=== PATIENT | female | born 1950 | race Hispanic/Latino ===

== ENCOUNTER 2022-06-29 17:38 | Emergency (ER) | payer SELFPAY ==
[2022-06-29 19:11] LABS: Urine Blood Negative (Negative); Urine Glucose Negative (Negative); Urine Protein Negative (Negative); Urine Specific Gravity <=1.005 (1.005-1.030); Urine pH 5.5 (5.0-7.0)
--- NOTE | 2022-06-29 19:51 | ER ---
Nurse's Notes [facility] Name: Mercedez Chairez Age: 72 yrs Sex: Female : 1950 Arrival Date: 06/29/2022 Time: 17:40 Bed Treatment Private MD: Diagnosis: UTI/ Urinary tract infection, site not specified Presentation: 06/29 17:50 Chief complaint: Patient states: Pt reports intermittent fever x3 days, vaginal itching kb3 x7 days. Denies urinary frequency, hesitancy, pain. Coronavirus screen: Vaccine status: Patient reports receiving the 2nd dose of the covid vaccine. Client denies travel out of the [place] in the last 14 days. Ebola Screen: Patient negative for fever greater than or equal to 101.5 degrees Fahrenheit, and additional compatible Ebola Virus Disease symptoms Patient denies exposure to infectious person. Patient denies travel to an Ebola-affected area in the 21 days before illness onset. Initial Sepsis Screen: Does the patient meet any 2 criteria? No. Patient's initial sepsis screen is negative. Does the patient have a suspected source of infection? No. Patient's initial sepsis screen is negative. Risk Assessment: Do you want to hurt yourself or someone else? Patient reports no desire to harm self or others. Onset of symptoms was June 22, 2022. 17:50 Method Of Arrival: Ambulatory kb3 17:50 Acuity: [id number] 4 kb3 Triage Assessment: 17:54 General: Appears in no apparent distress. Behavior is calm, cooperative. Pain: Denies kb3 pain. Historical: - Allergies: 17:52 No Known Allergies; kb3 - PMHx: 17:54 Breast CA; Cerebrovascular accident; Lymphadema; Hypercholesterolemia; Hypertensive kb3 disorder; - PSHx: 17:54 Mastectomy; kb3 - Immunization history:: Adult Immunizations up to date, Client reports receiving the 2nd dose of the Covid vaccine, Last tetanus immunization: up to date. - Social history:: Smoking status: Patient denies any tobacco usage or history of. Screenin:41 Abuse screen: Denies threats or abuse. Denies injuries from another. Nutritional hb screening: No deficits noted. Tuberculosis screening: No symptoms or risk factors identified. Fall Risk None identified. Assessment: 19:15 General: Appears in no apparent distress. Behavior is calm, cooperative. Neuro: Level hb of Consciousness is awake, alert, obeys commands, Oriented to person, place, time, situation. Cardiovascular: Patient's skin is warm and dry. Respiratory: Respiratory effort is even, unlabored, Respiratory pattern is regular, symmetrical. 20:02 Reassessment: Patient appears in no apparent distress at this time. Patient and/or hb family updated on plan of care and expected duration. Pain level reassessed. Patient is alert, oriented x 3, equal unlabored respirations, skin warm/dry/pink. Vital Signs: 17:50 BP 145 / 66; Pulse 81; Resp 20; Temp 99.1; Pulse Ox 95% ; Weight 89.81 kg; Height 5 ft. kb3 1 in. (154.94 cm); Pain 0/10; 20:11 BP 142 / 72; Pulse 84; Resp 18; Pulse Ox 96% ; em6 17:50 Body Mass Index 37.41 (89.81 kg, 154.94 cm) kb3 ED Course: 17:40 Patient arrived in ED. as 17:52 Triage completed. kb3 17:54 Arm band placed on right wrist. kb3 17:58 David Caldera MD is Attending Physician. kdr 19:15 Monisha Carcamo, RN is Primary Nurse. hb 19:41 Patient has correct armband on for positive identification. hb 20:12 No provider procedures requiring assistance completed. Patient did not have IV access em6 during this emergency room visit. Administered Medications: 19:58 Drug: DiFLUcan (fluconazole) 150 mg Route: PO; em6 20:12 Follow up: Response: No adverse reaction em6 19:58 Drug: Bactrim (trimethoprim-sulfamethoxazole) (160 mg-800 mg (DS) 1 tablet Route: PO; em6 20:12 Follow up: Response: No adverse reaction em6 Medication: 19:41 VIS not applicable for this client. hb Outcome: 19:50 Discharge ordered by . kdr 20:12 Discharged to home ambulatory. em6 20:12 Condition: stable 20:12 Discharge instructions given to patient, Instructed on discharge instructions, follow up and referral plans. medication usage, Demonstrated understanding of instructions, follow-up care, medications, Prescriptions given X 1. 20:12 Patient left the ED. em6 Signatures: Rittger, David, Gisel Gilbert MD, Heather, RN RN hb Vianey Padron, RN RN em6 Eveline Rosas, RN RN kb3
--- NOTE | 2022-06-29 19:51 | EDPHYS ---
Physician Documentation [facility] Name: Mercedez Chairez Age: 72 yrs Sex: Female : 1950 Arrival Date: 06/29/2022 Time: 17:40 Bed Treatment Private MD: MICHELLE Physician David Caldera HPI: 06/29 19:50 This 72 yrs old Female presents to ER via Ambulatory with complaints of kdr infection. 19:50 Patient complains of urinary tract fraction symptoms including itching in her perineum. kdr Is been going on intermittently for about a month. Last 3 days she has had subjective fevers. She is not denies nausea vomiting or change in her bowel habits. She also states that her appetite has been diminished the last day or so but without weight loss. Onset: The symptoms/episode began/occurred gradually, 3 week(s) ago. Severity of symptoms: At their worst the symptoms were mild in the emergency department the symptoms are unchanged. The patient has not experienced similar symptoms in the past. The patient has not recently seen a physician. Historical: - Allergies: 17:52 No Known Allergies; kb3 - PMHx: 17:54 Breast CA; Cerebrovascular accident; Lymphadema; Hypercholesterolemia; Hypertensive kb3 disorder; - PSHx: 17:54 Mastectomy; kb3 - Immunization history:: Adult Immunizations up to date, Client reports receiving the 2nd dose of the Covid vaccine, Last tetanus immunization: up to date. - Social history:: Smoking status: Patient denies any tobacco usage or history of. ROS: 19:50 Constitutional: Negative for fever, chills, and weight loss, Eyes: Negative for injury, kdr pain, redness, and discharge, Neck: Negative for injury, pain, and swelling, Cardiovascular: Negative for chest pain, palpitations, and edema, Respiratory: Negative for shortness of breath, cough, wheezing, and pleuritic chest pain, Abdomen/GI: Negative for abdominal pain, nausea, vomiting, diarrhea, and constipation, Back: Negative for injury and pain, MS/Extremity: Negative for injury and deformity, Skin: Negative for injury, rash, and discoloration, Neuro: Negative for headache, weakness, numbness, tingling, and seizure activity. Psych: Negative for depression, anxiety, suicide ideation, homicidal ideation, and hallucinations, Allergy/Immunology: Negative for hives, rash, and allergies, Endocrine: Negative for neck swelling, polydipsia, polyuria, polyphagia, and marked weight changes, Hematologic/Lymphatic: Negative for swollen nodes, abnormal bleeding, and unusual bruising. 19:50 : Positive for urinary symptoms, Itching in the perineal area. Exam: 19:50 Constitutional: This is a well developed, well nourished patient who is awake, alert, kdr and in no acute distress. Head/Face: Normocephalic, atraumatic. Eyes: Pupils equal round and reactive to light, extra-ocular motions intact. Lids and lashes normal. Conjunctiva and sclera are non-icteric and not injected. Cornea within normal limits. Periorbital areas with no swelling, redness, or edema. Neck: Trachea midline, no thyromegaly or masses palpated, and no cervical lymphadenopathy. Supple, full range of motion without nuchal rigidity, or vertebral point tenderness. No Meningismus. Chest/axilla: Normal chest wall appearance and motion. Nontender with no deformity. No lesions are appreciated. Cardiovascular: Regular rate and rhythm with a normal S1 and S2. No gallops, murmurs, or rubs. Normal PMI, no JVD. No pulse deficits. Respiratory: Lungs have equal breath sounds bilaterally, clear to auscultation and percussion. No rales, rhonchi or wheezes noted. No increased work of breathing, no retractions or nasal flaring. Abdomen/GI: Soft, non-tender, with normal bowel sounds. No distension or tympany. No guarding or rebound. No evidence of tenderness throughout. Back: No spinal tenderness. No costovertebral tenderness. Full range of motion. Skin: Warm, dry with normal turgor. Normal color with no rashes, no lesions, and no evidence of cellulitis. MS/ Extremity: Pulses equal, no cyanosis. Neurovascular intact. Full, normal range of motion. Neuro: Awake and alert, GCS 15, oriented to person, place, time, and situation. Cranial nerves II-XII grossly intact. Motor strength 5/5 in all extremities. Sensory grossly intact. Cerebellar exam normal. Normal gait. Psych: Awake, alert, with orientation to person, place and time. Behavior, mood, and affect are within normal limits. Vital Signs: 17:50 BP 145 / 66; Pulse 81; Resp 20; Temp 99.1; Pulse Ox 95% ; Weight 89.81 kg; Height 5 ft. kb3 1 in. (154.94 cm); Pain 0/10; 20:11 BP 142 / 72; Pulse 84; Resp 18; Pulse Ox 96% ; em6 17:50 Body Mass Index 37.41 (89.81 kg, 154.94 cm) kb3 MDM: 19:50 Patient medically screened. kdr 19:50 Data reviewed: vital signs, nurses notes, lab test result(s). Counseling: I had a kdr detailed discussion with the patient and/or guardian regarding: the historical points, exam findings, and any diagnostic results supporting the discharge/admit diagnosis, lab results, the need for outpatient follow up. 06/29 19:12 Order name: Urine Dipstick-Ancillary; Complete Time: 19:48 EDMS Administered Medications: 19:58 Drug: DiFLUcan (fluconazole) 150 mg Route: PO; em6 20:12 Follow up: Response: No adverse reaction em6 19:58 Drug: Bactrim (trimethoprim-sulfamethoxazole) (160 mg-800 mg (DS) 1 tablet Route: PO; em6 20:12 Follow up: Response: No adverse reaction em6 Disposition Summary: 06/29/22 19:50 Discharge Ordered Location: Home kdr Problem: new kdr Symptoms: are unchanged kdr Condition: Stable kdr Diagnosis - UTI/ Urinary tract infection, site not specified kdr Followup: kdr - With: Private Physician - When: 2 - 3 days - Reason: If symptoms return, Further diagnostic work-up, Recheck today's complaints, Continuance of care, Re-evaluation by your physician Discharge Instructions: - Discharge Summary Sheet kdr - Dysuria kdr - Urinary Tract Infection, Adult kdr Forms: - Medication Reconciliation Form kdr - Thank You Letter kdr - Antibiotic Education kdr Prescriptions: - Bactrim DS 800-160 mg Oral Tablet - take 1 tablet by ORAL route every 12 hours for 7 days; 14 tablet; Refills: 0, kdr Product Selection Permitted Signatures: David Caldera MD MD kdr Vianey Padron RN RN em6 Eveline Rosas RN RN kb3
[2022-06-29] MEDS ORDERED: FLUCONAZOLE 100 MG TAB ONE (19:58)
[2022-06-29] MEDS ORDERED: SMZ./TMP. 800/160 MG TABLET ONE (19:59)
[2022-06-29 21:04] VITALS: TEMP 99.1
[2022-06-29 21:05] VITALS: BP 142/72; O2SAT 96
== END 2022-06-29 20:12 | disposition home or self-care (01) ==
LOC: ER 17:38
DX: N39.0 Urinary tract infection, site not specified (principal); I10 Essential (primary) hypertension
CPT/HCPCS: 81003; 99283